=== PATIENT | male | born 1970 | race Caucasian/White ===

== ENCOUNTER 2021-11-06 16:11 | Emergency (ER) | payer MEDICARE ==
[~2021-11-06 16:11] MED LIST: ASPIRIN CHEWABL81 MG PO; BRILINTA90 MG PO; BUPROPION XL150 MG PO; COREG 6.25MG6.25 MG PO; DITROPAN5 MG PO; FAMOTIDINE20 MG PO; FLUTICASONE PRO16 GM; HUMIRA PEN40 MG/0.4 IM; ISOSORBIDE MONO60 MG PO; MULTI COMPLETE1 EACH PO; NORCO 5-325 TA1 EAC1 PO; OMEPRAZOLE40 MG PO; PAXIL10 MG PO; PERCOCET 5-3251 EACH PO; PREDNISOLONE AC15 ML OU; PROVENTIL HFA6.7 GM INH; RANEXA1000 MG PO; ROSUVASTATIN CA40 MG PO; ZESTRIL2.5 MG PO
[2021-11-06 17:11] LABS: BASOPHIL 0.6 % (0-2); EOSINOPHIL 0.8 % (0-5); HGB 13.8 g/dl (13.2-18.0); LYMPHOCYTE 37.8 % (15-48); MCH 32.2 pg (25.0-31.0); MCHC 33.7 g/dL (32.0-36.0); MCV 95.6 fL (78.0-100.0); MONOCYTE 7.6 % (0-12); MPV 9.5 fL (6.0-9.5); NEUTROPHIL 52.8 % (41-80); NRBC 0; PLT 264 K/uL (150-400); RBC 4.29 M/uL (4.70-6.00); RDW 12.3 % (11.5-14.0); WBC 7.1 K/uL (4.0-10.5)
[2021-11-06 17:14] LABS: INR 1.05 (0.9-1.2); PROTHROMBIN TIME 13.4 SECONDS (11.9-13.9); PTT 24.4 SECONDS (24.9-34.6)
[2021-11-06 17:25] LABS: ALBUMIN 3.5 g/dL (3.4-5.0); BILIRUBIN - TOTAL 0.4 mg/dL (0.2-1.0); CREATININE 1.17 mg/dL (0.67-1.17); GLOBULIN (CALCULATION) 3.1 g/dL; POTASSIUM 4.1 mmol/L (3.5-5.1); TOTAL PROTEIN 6.6 g/dL (6.4-8.2)
== END 2021-11-06 20:13 | disposition home or self-care (01) ==
LOC: FER 16:11
PROVIDERS: Emergency Medicine
DX: R20.2 Paresthesia of skin (principal); I25.10 Atherosclerotic heart disease of native coronary artery without angina pectoris; I10 Essential (primary) hypertension; Z86.73 Personal history of transient ischemic attack (TIA), and cerebral infarction without residual deficits; Z95.1 Presence of aortocoronary bypass graft; Z95.5 Presence of coronary angioplasty implant and graft; Z88.0 Allergy status to penicillin; Z88.1 Allergy status to other antibiotic agents; Z88.6 Allergy status to analgesic agent; Z88.8 Allergy status to other drugs, medicaments and biological substances; Z91.018 Allergy to other foods; Z79.82 Long term (current) use of aspirin; Z79.899 Other long term (current) drug therapy
CPT/HCPCS: 36415; 70450; 70551; 71045; 80053; 84484; 85025; 85610; 85730; 93005